=== PATIENT | female | born 2000 | race Caucasian/White ===

== ENCOUNTER 2024-10-01 06:18 | Day surgery (SDC) | payer BC, SELFPAY | END 2024-10-01 14:49 | disposition home or self-care (01) | LOC: GI 06:18 | PROVIDERS: ATTENDING PHYSICIAN Internal Medicine Gastroenterology | DX: R19.4 Change in bowel habit (principal); R63.4 Abnormal weight loss; K64.8 Other hemorrhoids; R12 Heartburn; K31.89 Other diseases of stomach and duodenum | CPT/HCPCS: 45380; 43239; 88305; 88342 ==